=== PATIENT | female | born 1995 | race Caucasian/White ===

== ENCOUNTER 2021-05-05 07:40 | Inpatient (IN) ==
[2021-05-05] MEDS ORDERED: OXYTOCIN 30 UNITS/500 ML BAG IV PRN ×3 (08:01→09:21)
[2021-05-05 09:19] LABS: Hematocrit (blood only) 41.1 % (37-47); Hemoglobin 13.8 g/dL (12.0-16.0); Mean Corpuscular Hemoglobin 30.5 pg (25-34); Mean Corpuscular Hgb Conc 33.6 g/dL (32-36); Mean Corpuscular Volume 90.7 fL (80-100); Mean Platelet Volume 8.9 fL (7.4-10.4); Platelet Count 293 K/uL (130-400); RDW Coefficient of Variation 13.6 % (11.5-14.5); RDW Standard Deviation 44.6 fL (36.4-46.3); Red Blood Count 4.53 M/uL (4.2-5.4); White Blood Count 6.65 K/uL (4.8-10.8)
--- NOTE | 2021-05-05 09:23 | History & Physical Report ---
Date of Service May 05, 2021 Assessment & Plan (1) Gestational hypertension: (2) 36 weeks gestation of : (3) Unfavorable cervix in term : Plan: Patient admitted for induction. pace planned for cervical ripening and will start low dose pitocin. gbs neg. covid negative. plan arom as indicated . epidural on request. no s/s or pet at this point. anticipate . Admission and Anticipated Discharge Date Admission Date: May 05, 2021 History of Present Illness Chief Complaint: presents for induction Primary Care Provider: NO PCP Patient is a 25yowf with iup at 38 0/7 weeks who [facility] induction for ghtn. Started to have elevated blood pressures at 36 weeks. She has no s/s of pet. labs were normal. Per ACOG recommendations, induction recommended between 37-38 weeks. Today she feels well. Rare contraction. no vb/lof. Good fm. labs-- Blood Type A Positive 10/11/20 Antibody Screen NEGATIVE 10/11/20 Hemoglobin 13.4 g/dL (12.0-16.0) 04/29/21 Hematocrit 40.6 % (37-47) 04/29/21 Mean Corpuscular Volume 91.9 fL (80-100) 04/29/21 Platelet Count 287 K/uL (130-400) 04/29/21 Rubella IgG Antibody Immune (Immune) 10/11/20 Rapid Plasma Reagin Nonreactive (Nonreactive) 10/11/20 Hepatitis B Surface Antigen Neg (Neg) 10/11/20 HIV (1&2) Ab and P24 Ag, 4th Gener Neg (Neg) 10/11/20 Glucose 1 Hour 50 gm Load 95 mg/dl (70-130) 02/24/21 OB Optional Labs: Chlamydia trachomatis RNA NOT DETECTED (NOT DETECTED) 10/11/20 Neisseria gonorrhoeae RNA NOT DETECTED (NOT DETECTED) 10/11/20 declined genetic testing/cf/sma/afp GBS negative Allergies Allergy/AdvReac Type Severity Reaction Status Date / Time aspirin Allergy ringing in Verified 05/04/21 14:09 the ears Home Medications Medication Instructions Recorded Confirmed Type prenat.vits,conrad,sgz-omvi-oneet 1 tab PO DAILY 10/08/20 05/05/21 History esomeprazole magnesium 20 mg 20 mg PO DAILY 05/05/21 05/05/21 History capsule,delayed release (Nexium) Patient History Medical History Chlamydia Heartburn Varicella vaccination Surgical History No history of previous surgery Family History Grandfather (Maternal) Heart disease Denies family history of Ovarian cancer Breast cancer Colorectal cancer Social History Smoking Status: Never smoker Second Hand Exposure: No; Do You Dip or Chew Tobacco: No; Tobacco Cessation Education Requested by Patient: No Hx Alcohol Use: No Hx Substance Use: No Preferred Language: Citizen Of The [place] Communication Ability: Effective 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 Required: No Beliefs That Will Affect Care: None marital status: marital status details: Canelodylan Greent (25) Current Living Situation: Spouse Current Living Situation Comment: Lives with , cat and dog current occupational status: employed 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 Other Information That Helps Us Care for You: No Feels Safe at Home: Yes Safety Concerns: Feels Safe At This Time Assistive Devices: None OB History g1--current Physical Exam Constitutional: WD/WN, vitals as above Neck: trachea midline, no thyromegaly Gastrointestinal (Abdomen): soft, gravid, nt efw--7-8# Neurologic: patellar DTR's 2+ bilat, sensation intact Psychiatric: A+Ox3, euthymic affect Genitourinary: cx--barely ft/50/-2/mid/firm toco--irregular contractions efm--130s with mod variability, accels to 150s, no decels Pace bulb placed by placing speculum in vagina and threading the pace through the cervical os. the balloon was filled with 30cc sterile water. tolerated well. Results & Data ([facility]) Vital Signs (Past 12 Hours) Vital Signs Temp Pulse Resp BP 05/05/21 08:05 36.7 C 20 05/05/21 07:49 93 H 138/82 Coding Level of Care Code None Diagnoses Gestational hypertension O13.9 36 weeks gestation of Z3A.36 Unfavorable cervix in term O34.40
[2021-05-05] MEDS: LACTATED RINGER'S 1,000 ML IV PRN ×3 (09:27→22:18)
--- NOTE | 2021-05-05 13:53 | Labor Progress Brief Note ---
Date of Service May 05, 2021 Subjective getting uncomfortable Assessment & Plan (1) 36 weeks gestation of : (2) Gestational hypertension: Plan: offered pain managment, agreeable to stadol. Was hoping to do this naturally, had talked about epidural. fetus reassuring. Continue current mangement. Admission and Anticipated Discharge Date Admission Date: May 05, 2021 Physical Exam Physical Exam: gentle tug on the pace and did not come out toco--q2-3min, pit at 7 efm--category one Results & Data ([facility]) Vital Signs (Past 12 Hours) Vital Signs Temp Pulse Resp BP 05/05/21 13:50 88 132/85 05/05/21 12:49 85 136/86 05/05/21 11:50 36.8 C 85 20 126/80 05/05/21 10:49 83 127/76 05/05/21 10:39 83 118/73 05/05/21 10:24 86 20 118/62 05/05/21 10:09 82 119/72 05/05/21 09:37 68 109/63 05/05/21 08:05 36.7 C 20 05/05/21 07:49 93 H 138/82 Coding Level of Care Code None Diagnoses 36 weeks gestation of Z3A.36 Gestational hypertension O13.9
[2021-05-05] MEDS ORDERED: BUTORPHANOL TARTRATE 1 MG/ML VIAL IV ONE (13:54)
--- NOTE | 2021-05-05 17:42 | Labor Progress Brief Note ---
Date of Service May 05, 2021 Subjective stadol helped Assessment & Plan (1) 36 weeks gestation of : (2) Gestational hypertension: Plan: doing well. fetus category one. anticipate . continue current management. Admission and Anticipated Discharge Date Admission Date: May 05, 2021 Physical Exam Physical Exam: gentle tug on pace and removed cx--/-2 arom--clear toco--q2-3min, pit at 9 efm--140s with mod variability, accels to 170s, no decels Results & Data ([facility]) Vital Signs (Past 12 Hours) Vital Signs Temp Pulse Resp BP 05/05/21 16:50 96 H 16 131/78 05/05/21 15:49 37 C 88 16 128/87 05/05/21 14:50 91 H 119/68 05/05/21 13:50 88 132/85 05/05/21 12:49 85 136/86 05/05/21 11:50 36.8 C 85 20 126/80 05/05/21 10:49 83 127/76 05/05/21 10:39 83 118/73 05/05/21 10:24 86 20 118/62 05/05/21 10:09 82 119/72 05/05/21 09:37 68 109/63 05/05/21 08:05 36.7 C 20 05/05/21 07:49 93 H 138/82 Coding Level of Care Code None Diagnoses 36 weeks gestation of Z3A.36 Gestational hypertension O13.9
[2021-05-05] MEDS ORDERED: Influenza Vaccine (Fluarix) 0.5 ML SYR (Standard Dose) IM ONE (18:00)
[2021-05-05] MEDS ORDERED: SODIUM CHLORIDE 0.9% INJ 10 ML VIAL ONE (21:32)
[2021-05-05] MEDS ORDERED: fentaNYL citrate 100 MCG/2 ML VIAL ONE (21:32)
[2021-05-05] MEDS ORDERED: ePHEDrine sulfate 50 MG/ML AMP ONE (21:32)
[2021-05-05] MEDS ORDERED: BUPIVACAINE 0.25% 30 ML VIAL ONE (21:32)
[2021-05-05] MEDS ORDERED: fentaNYL 2MCG/ML ROPIVACAINE 1.25MG/ML 100 ML BAG EPI ONE (21:33)
[2021-05-05] MEDS ORDERED: diphenhydrAMINE 50 MG/ML VIAL IV PRN (22:19)
[2021-05-05] MEDS ORDERED: PROMETHAZINE HCL 6.25 MG in SODIUM CHLORIDE 0.9% 50 ML IV PRN (22:19)
[2021-05-05] MEDS ORDERED: NALOXONE HCL 0.4 MG/1 ML VIAL/CARP IV PRN (22:19)
[2021-05-05] MEDS ORDERED: NALBUPHINE HCL INJ 10 MG/ML AMP IV PRN (22:19)
[2021-05-05] MEDS ORDERED: ONDANSETRON INJ 2 MG/ML 2 ML VIAL IV PRN (22:19)
[2021-05-05] MEDS ORDERED: ePHEDrine sulfate 50 MG/ML AMP IV PRN (22:19)
[2021-05-05] MEDS ORDERED: fentaNYL 2MCG/ML ROPIVACAINE 1.25MG/ML 100 ML BAG EPI PRN (22:19)
[2021-05-05] MEDS ORDERED: NALOXONE HCL 1 MG in SODIUM CHLORIDE 0.9% 1000ML 1,000 ML IV PRN (22:19)
--- NOTE | 2021-05-05 22:19 | Anesthesiology Consultation ---
Date of Service May 05, 2021 Assessment & Plan Chart Review Chart Review: Patient NOT seen in Pre Admission Testing and Acceptable Risk for Labor Epidural Consults Requested none ASA ASA2 Proposed Anesthesia Anesthesia Type: Labor Epidural Risk / Benefits Reviewed With: PT / POA / Parent / Guardian, Accepts Plan and Informed Consent Obtained History Height/Weight Height: 5 ft 1 in Weight: 100.244 kg Allergies Allergy/AdvReac Type Severity Reaction Status Date / Time aspirin Allergy ringing in Verified 05/04/21 14:09 the ears Medications Home Medications Medication Instructions Recorded Confirmed Last Taken prenat.vits,conrad,lix-bqxr-trrmr 1 tab PO DAILY 10/08/20 05/05/21 05/04/21 21:00 esomeprazole magnesium 20 mg 20 mg PO DAILY 05/05/21 05/05/21 05/03/21 12:30 capsule,delayed release (Nexium) Active Medications Generic Name Dose Route Start Last Admin Trade Name Freq PRN Reason Stop Dose Admin Oxytocin 30 units in 500 mls @ 13 mls/hr 05/05/21 08:01 05/05/21 19:49 Pitocin IV 05/07/21 08:00 0.78 units/hr .Q24H PRN 13 mls/hr Labor Induction/Augmentation Titration Protocol 0.78 UNITS/HR Lactated Ringer's 1,000 mls @ 125 mls/hr 05/05/21 08:01 05/05/21 22:18 Lr IV 05/07/21 08:00 999 mls/hr .Q8H PRN Administration L&D Protocol Protocol Past Medical History Medical History Chlamydia Heartburn Varicella vaccination Exercise / Class Metabolic Activity II 4-5 Yardwork/Stairs/Walk up hill Past Family History Family History Grandfather (Maternal) Heart disease Denies family history of Ovarian cancer Breast cancer Colorectal cancer Past Surgical History Surgical History No history of previous surgery Past Anesthesia History No Hx of Anesthesia Complications and No Family Hx of Anesthesia Complications History of PONV No Hx of PONV and No Hx of Motion Sickness Social History Smoking Status: Never smoker Do You Dip or Chew Tobacco: No Hx Alcohol Use: No Hx Substance Use: No substance use type: does not use Physical Exam Vital Signs Last Vital Signs Temp 36.9 C 05/05/21 22:16 Pulse 117 H 05/05/21 22:16 Resp 18 05/05/21 22:16 BP 110/55 L 05/05/21 22:16 Pulse Ox 98 05/05/21 22:13 ENMT Mouth: no dentition abnormality Thyromental Distance: > or= 3.5 Finger Breadths Mallampati Class: II Neck normal visual inspection Respiratory normal respiratory effort Auscultation: lungs clear to auscultation bilaterally Cardiovascular Rate/Rhythm: regular rate and regular rhythm Psychiatric Orientation: alert Testing Laboratory Results 05/05/21 08:39 Blood Type A Positive 05/05/21 08:39 Antibody Screen NEGATIVE 05/05/21 08:39
--- NOTE | 2021-05-06 00:48 | Labor Progress Brief Note ---
Date of Service May 06, 2021 Subjective comfortable with epidural. Assessment & Plan (1) Gestational hypertension: (2) 36 weeks gestation of : Plan: iupc placed, fetus reassuring, continue pitocin. Admission and Anticipated Discharge Date Admission Date: May 05, 2021 Physical Exam Physical Exam: cx--4/100/-2 iupc placed toco--q2-4min, pit at 15, some runs of contractions efm--140s with mod variability, accels to 150s, no decels Results & Data ([facility]) Vital Signs (Past 12 Hours) Vital Signs Temp Pulse Resp BP Pulse Ox 05/06/21 00:43 85 95 05/06/21 00:38 94 H 96 05/06/21 00:33 98 H 94 05/06/21 00:31 94 H 112/71 05/06/21 00:28 88 95 05/06/21 00:23 92 H 94 05/06/21 00:18 87 93 05/06/21 00:16 85 114/71 05/06/21 00:13 108 H 95 05/06/21 00:08 90 95 05/06/21 00:04 36.7 C 18 05/06/21 00:03 96 H 95 05/06/21 00:00 100 H 18 114/72 05/05/21 23:58 85 95 05/05/21 23:55 84 86 L 05/05/21 23:53 102 H 95 05/05/21 23:48 92 H 95 05/05/21 23:46 86 114/73 05/05/21 23:43 115 H 94 05/05/21 23:38 90 94 05/05/21 23:33 98 H 94 05/05/21 23:32 86 109/68 05/05/21 23:31 85 101/67 94 05/05/21 23:30 18 05/05/21 23:28 84 96 05/05/21 23:24 90 93 05/05/21 23:23 92 H 92 05/05/21 23:18 105 H 94 05/05/21 23:16 90 105/64 05/05/21 23:13 86 93 05/05/21 23:11 96 H 93 05/05/21 23:08 74 90 05/05/21 23:06 104 H 94 05/05/21 23:03 101 H 95 09/30/21 23:02 93 H 105/64 05/05/21 23:00 86 18 93 05/05/21 22:58 95 H 93 05/05/21 22:54 79 93 05/05/21 22:53 84 96 05/05/21 22:49 87 94 05/05/21 22:48 77 95 05/05/21 22:46 93 H 90/52 L 05/05/21 22:43 64 92 05/05/21 22:38 83 94 05/05/21 22:37 69 93 05/05/21 22:33 90 96 05/05/21 22:32 89 93 05/05/21 22:28 90 111/59 L 96 05/05/21 22:25 91 H 117/64 05/05/21 22:23 82 94 05/05/21 22:22 91 H 115/61 05/05/21 22:19 97 H 111/58 L 05/05/21 22:18 93 H 96 05/05/21 22:16 36.9 C 117 H 18 110/55 L 05/05/21 22:13 137 H 116/59 L 98 05/05/21 22:11 105 H 93 05/05/21 22:10 116 H 170/80 H 05/05/21 22:08 107 H 98 05/05/21 22:07 99 H 149/80 H 05/05/21 22:04 111 H 147/70 H 05/05/21 22:03 130 H 100 05/05/21 21:58 103 H 99 05/05/21 21:49 88 136/77 05/05/21 20:49 97 H 136/88 05/05/21 19:49 106 H 135/60 05/05/21 19:01 37.0 C 18 05/05/21 18:50 88 119/76 05/05/21 17:49 114 H 118/73 05/05/21 17:45 37.2 C 05/05/21 16:50 96 H 16 131/78 05/05/21 15:49 37 C 88 16 128/87 05/05/21 14:50 91 H 119/68 05/05/21 13:50 88 132/85 05/05/21 12:49 85 136/86 Coding Level of Care Code None Diagnoses Gestational hypertension O13.9 36 weeks gestation of Z3A.36
--- NOTE | 2021-05-06 04:17 | Labor Progress Brief Note ---
Date of Service May 06, 2021 Subjective noting hip /buttock pain Assessment & Plan (1) 36 weeks gestation of : (2) Gestational hypertension: Plan: begin stage 2. Fetus overall reassuring category two . Anticipate . Admission and Anticipated Discharge Date Admission Date: May 05, 2021 Physical Exam Physical Exam: cx--c/c/+2 toco--q2-3, pit at 17, MVUs>200 efm--150s with mod variability, accels to 160s, rare variable Results & Data ([facility]) Vital Signs (Past 12 Hours) Vital Signs Temp Pulse Resp BP Pulse Ox 05/06/21 04:13 114 H 96 05/06/21 04:08 95 H 94 05/06/21 04:03 96 H 94 05/06/21 04:01 101 H 122/72 05/06/21 04:00 18 05/06/21 03:58 107 H 94 05/06/21 03:53 109 H 93 05/06/21 03:48 99 H 92 05/06/21 03:46 94 H 122/74 05/06/21 03:43 90 94 05/06/21 03:38 107 H 93 05/06/21 03:33 95 H 94 05/06/21 03:31 87 105/60 05/06/21 03:28 89 94 05/06/21 03:23 93 H 94 05/06/21 03:18 89 93 05/06/21 03:16 98 H 103/53 L 05/06/21 03:13 93 H 93 05/06/21 03:08 97 H 94 05/06/21 03:03 94 H 92 05/06/21 03:01 89 101/55 L 05/06/21 03:00 18 05/06/21 02:58 101 H 93 05/06/21 02:53 98 H 94 05/06/21 02:48 88 95 05/06/21 02:46 95 H 101/54 L 05/06/21 02:43 99 H 94 05/06/21 02:38 93 H 94 05/06/21 02:33 89 94 05/06/21 02:31 93 H 103/59 L 05/06/21 02:30 18 05/06/21 02:28 89 94 05/06/21 02:23 101 H 93 05/06/21 02:18 88 93 05/06/21 02:16 90 101/53 L 05/06/21 02:13 91 H 94 05/06/21 02:11 89 84/48 L 05/06/21 02:08 91 H 93 05/06/21 02:03 85 93 05/06/21 02:01 98 H 79/46 L 05/06/21 01:58 92 H 94 05/06/21 01:53 91 H 93 05/06/21 01:48 85 94 05/06/21 01:43 124 H 96 05/06/21 01:42 36.7 C 18 05/06/21 01:38 109 H 96 05/06/21 01:33 95 H 94 05/06/21 01:31 100 H 110/59 L 05/06/21 01:30 18 05/06/21 01:28 96 H 94 05/06/21 01:23 93 H 93 05/06/21 01:18 95 H 94 05/06/21 01:16 92 H 107/59 L 05/06/21 01:13 95 H 95 05/06/21 01:08 100 H 96 05/06/21 01:03 99 H 94 05/06/21 01:01 99 H 108/59 L 05/06/21 01:00 18 05/06/21 00:58 98 H 94 05/06/21 00:53 93 H 94 05/06/21 00:48 99 H 95 05/06/21 00:46 99 H 120/74 05/06/21 00:43 85 95 05/06/21 00:38 94 H 96 05/06/21 00:33 98 H 94 05/06/21 00:31 94 H 112/71 05/06/21 00:30 18 05/06/21 00:28 88 95 05/06/21 00:23 92 H 94 05/06/21 00:18 87 93 05/06/21 00:16 85 114/71 05/06/21 00:13 108 H 95 05/06/21 00:08 90 95 05/06/21 00:04 36.7 C 18 05/06/21 00:03 96 H 95 05/06/21 00:00 100 H 18 114/72 05/05/21 23:58 85 95 05/05/21 23:55 84 86 L 05/05/21 23:53 102 H 95 05/05/21 23:48 92 H 95 05/05/21 23:46 86 114/73 05/05/21 23:43 115 H 94 05/05/21 23:38 90 94 05/05/21 23:33 98 H 94 05/05/21 23:32 86 109/68 05/05/21 23:31 85 101/67 94 05/05/21 23:30 18 05/05/21 23:28 84 96 05/05/21 23:24 90 93 05/05/21 23:23 92 H 92 05/05/21 23:18 105 H 94 05/05/21 23:16 90 105/64 05/05/21 23:13 86 93 05/05/21 23:11 96 H 93 05/05/21 23:08 74 90 05/05/21 23:06 104 H 94 05/05/21 23:03 101 H 95 05/05/21 23:02 93 H 105/64 05/05/21 23:00 86 18 93 05/05/21 22:58 95 H 93 05/05/21 22:54 79 93 05/05/21 22:53 84 96 05/05/21 22:49 87 94 05/05/21 22:48 77 95 05/05/21 22:46 93 H 90/52 L 05/05/21 22:43 64 92 05/05/21 22:38 83 94 05/05/21 22:37 69 93 05/05/21 22:33 90 96 05/05/21 22:32 89 93 05/05/21 22:28 90 111/59 L 96 05/05/21 22:25 91 H 117/64 05/05/21 22:23 82 94 05/05/21 22:22 91 H 115/61 05/05/21 22:19 97 H 111/58 L 05/05/21 22:18 93 H 96 05/05/21 22:16 36.9 C 117 H 18 110/55 L 05/05/21 22:13 137 H 116/59 L 98 05/05/21 22:11 105 H 93 05/05/21 22:10 116 H 170/80 H 05/05/21 22:08 107 H 98 05/05/21 22:07 99 H 149/80 H 05/05/21 22:04 111 H 147/70 H 05/05/21 22:03 130 H 100 05/05/21 21:58 103 H 99 05/05/21 21:49 88 136/77 05/05/21 20:49 97 H 136/88 05/05/21 19:49 106 H 135/60 05/05/21 19:01 37.0 C 18 05/05/21 18:50 88 119/76 05/05/21 17:49 114 H 118/73 05/05/21 17:45 37.2 C 05/05/21 16:50 96 H 16 131/78 Coding Level of Care Code None Diagnoses 36 weeks gestation of Z3A.36 Gestational hypertension O13.9
[2021-05-06] MEDS ORDERED: HYDROCORTISONE ACETATE 25 MG SUPP PR PRN (05:00)
[2021-05-06] MEDS ORDERED: DIPHTHERIA/TETANUS/PERTUSSIS 0.5 ML SYR/VIAL IM ONE (05:00)
[2021-05-06] MEDS ORDERED: OXYTOCIN 30 UNITS/500 ML BAG IV PRN (05:00)
[2021-05-06] MEDS ORDERED: SUPERCREAM 0.870% 15 GM JAR EXT PRN (05:00)
[2021-05-06] MEDS ORDERED: BENZOCAINE 20% AER SPR 82.5 GM CAN EXT PRN (05:00)
[2021-05-06] MEDS ORDERED: CARBOPROST TROMETHAMINE 250 MCG/ML AMPUL IM ONE (05:00)
[2021-05-06] MEDS ORDERED: oxyCODONE/ACETAMINOPHEN 5mg/325mg TAB PO PRN (05:00)
[2021-05-06] MEDS ORDERED: bisacodyL 10 MG SUPP PR PRN (05:00)
[2021-05-06] MEDS: DOCUSATE SODIUM 100 MG CAP PO SCH ×2 (07:47→21:02)
[2021-05-06] MEDS: PRENATAL VITAMIN 1 TAB PO SCH (07:47)
[2021-05-06] MEDS: IBUPROFEN 600 MG TAB PO PRN ×4 (07:47→21:02)
--- NOTE | 2021-05-06 08:22 | Anesthesia Procedure Note ---
Date of Service May 06, 2021 Anesthesia Post Epidural Note Vital Signs Vital Signs: Temp Pulse Resp BP Pulse Ox 37.2 C 97 H 18 122/69 99 05/06/21 04:00 05/06/21 06:46 05/06/21 04:00 05/06/21 06:46 05/06/21 04:33 Pain Intensity Abdomen: Pain Intensity: 3 Notes Mental Status: alert / awake / arousable Nausea / Vomiting: adequately controlled Pain: adequately controlled Airway Patency, RR, SpO2: stable & adequate BP & HR: stable & adequate Hydration State: stable & adequate Neuraxial Anesthesia: was administered and sensory block is resolving Anesthetic Complications: no major complications apparent Epidural: Removed without complications and With tip intact
[2021-05-07] MEDS: ACETAMINOPHEN 325 MG TAB PO PRN ×2 (01:25→08:26)
[2021-05-07] MEDS: IBUPROFEN 600 MG TAB PO PRN ×3 (01:26→20:41)
[2021-05-07 06:51] LABS: Hematocrit (blood only) 37.2 % (37-47); Hemoglobin 12.3 g/dL (12.0-16.0)
--- NOTE | 2021-05-07 07:07 | Obstetrical Progress Note ---
Date of Service <Hari Mcmahan - Last Filed: 05/07/21 07:07> May 07, 2021 Assessment & Plan <Hari McmahanDO - Last Filed: 05/07/21 07:07> (1) Encounter for care and examination after delivery: 26 yo PPD 1 s/p at 38 weeks -Continue routine care; expect D/C today. -Vitals reviewed- HDS, afebrile -A+, GBS-, Rubella immune -Encourage ambulation, regular diet -Pain control with ibuprofen, acetaminophen PRN -Encouraged -F/u in 6 weeks with OB <Katharina Weaver MD - Last Filed: 05/07/21 08:12> (1) Encounter for care and examination after delivery: Subjective <Hari Mcmahan - Last Filed: 05/07/21 07:07> Ambulation: ambulating normally Voiding: no voiding problems Passing Gas:: Yes Diet Tolerance:: regular diet Lochia:: Moderate Feeding Type:: breast feeding Current Pain Level(1-10): 3 PPD 1 s/p . Patient seen and examined at bedside. Reports no acute overnight events Review of Systems All systems reviewed & are unremarkable except as noted in HPI & below Physical Exam <Hari Mcmahan - Last Filed: 05/07/21 07:07> General: Alert, oriented, no acute distress Cardiac: Regular rate and rhythm, normal S1, S2. No murmurs appreciated. Respiratory: Clear to auscultation b/l with good air flow entry, symmetric chest rise and fall. No wheezes or crackles. No increased work of breathing or accessory muscle use Abdomen: Soft, nontender, nondistended. Fundus firm and palpable at 1 cm below umbilicus. No guarding or rebound. Skin: No rashes or lesions Extremities: Warm, dry, well-perfused with capillary refill <2s b/l. No lower extremity edema, erythema or swelling. Negative Kaylen's sign b/l. Results & Data ([facility]) <Hrai Mcmahan - Last Filed: 05/07/21 07:07> Vital Signs (Past 12 Hours) Vital Signs Temp Pulse Resp BP 05/07/21 04:05 36.8 C 80 18 121/79 05/07/21 00:05 36.9 C 92 H 16 120/80 05/06/21 19:40 36.9 C 93 H 18 121/78 <Katharina Weaver MD - Last Filed: 05/07/21 08:12> Co-Signing Physician Notes Resident Physician Supervision Note: I interviewed and examined the patient. Discussed with Dr. Mcmahan and agree with findings and plan as documented in the note. Any exceptions or clarifications are listed here: PP1 s/p , meeting milestones. Delivered early yesterday morning, desires d/c home and stable to do so today Documented By: Katharina Weaver MD
[2021-05-07] MEDS: DOCUSATE SODIUM 100 MG CAP PO SCH ×2 (08:26→20:41)
[2021-05-07] MEDS: PRENATAL VITAMIN 1 TAB PO SCH (08:26)
[2021-05-07] MEDS ORDERED: bisacodyL 5 MG TABEC PO SCH (20:00)
[2021-05-08] MEDS: IBUPROFEN 600 MG TAB PO PRN (06:30)
[2021-05-08] MEDS: PRENATAL VITAMIN 1 TAB PO SCH (08:00)
[2021-05-08] MEDS: DOCUSATE SODIUM 100 MG CAP PO SCH (08:00)
--- NOTE | 2021-05-08 08:23 | Obstetrical Progress Note ---
Date of Service May 08, 2021 Assessment & Plan (1) Encounter for care and examination after delivery: satisfactory exam BP's have normalized discharge to home follow up in 6 weeks Subjective Ambulation: ambulating normally Voiding: no voiding problems Passing Gas:: Yes Diet Tolerance:: regular diet Lochia:: Small Feeding Type:: breast feeding (with some supplementation) Review of Systems All systems reviewed & are unremarkable except as noted in HPI & below Physical Exam Constitutional WD/WN, vitals as above Psychiatric A+Ox3, euthymic affect Genitourinary OB Exam Abdomen: + fundal height Fundus: + firm and + relation to umbilicus (2 below ) Results & Data ([facility]) Vital Signs (Past 12 Hours) Vital Signs Temp Pulse Resp BP Pulse Ox 05/07/21 23:35 98.2 F 85 16 135/79 98
--- NOTE | 2021-05-09 11:47 | Delivery Summary ---
Vaginal Delivery Summary Date of Service May 06, 2021 Vaginal Delivery Summary and 1st Degree LAC Pre-operative Diagnosis: at 38 weeks gestational hypertension Post-operative Diagnosis: same Procedure: pitocin induction arom epidural first degree laceration and right labial with repair EBL: 400cc Anesthesia: epidural Procedure: The patient was admitted for induction of labor secondary to gestational htn. She underwent pitocin induction and then arom. She then got an epidural. She progressed to c/c/+2. The patient pushed to deliver a viable female infant in cephalic position. The nose and mouth were bulb suctioned on the perineum and the rest of the infant was then delivered without difficulty. The baby was vigorous. The nose and mouth were again bulb suctioned and the infant was placed in the maternal abdomen for drying and attention. Cord was clamped and cut at one minute of life. Cord blood and segment obtained. Placenta delivered spontaneous, intact with a three vessel cord. Cervix/sulci/rectum were intact. A first degree perineal laceration and right labial laceration were repaired in the normal standard fashion. Hemostasis obtained with dilute pitocin and fundal massage. Apgars were 8/9. Mother and baby doing well at the end of the delivery. [facility] Vaginal Delivery Charge Delivery Type Details: and 1st Degree LAC
== END 2021-05-08 13:52 | disposition home or self-care (01) | DRG 807 ==
LOC: 4S1 07:40 → 4S2 05-06 07:03